=== PATIENT | male | born 1990 | race Caucasian/White ===

== ENCOUNTER 2016-12-03 13:31 | Emergency (ER) | payer MEDICAID, OTHER ==
[~2016-12-03] VITALS: Ht 170.2 cm; Wt 61.4 kg
[~2016-12-03 13:31] MED LIST: NOCURR
[2016-12-03] MEDS ORDERED: CefTRIAXone SODIUM 1 GM/VIAL IM ONE (16:00)
[2016-12-03] MEDS ORDERED: LIDOCAINE HCL/PF 1% 2 ML VIAL IM ONE (16:00)
[2016-12-03] MEDS ORDERED: DEXAMETHASONE SOD PHOS 4 MG/ML VIAL IM ONE (16:00)
[2016-12-03 16:43] VITALS: BP 111/66
== END 2016-12-03 16:49 | disposition home or self-care (01) ==
LOC: EMS 13:40
DX: J02.0 Streptococcal pharyngitis (principal); J06.9 Acute upper respiratory infection, unspecified
CPT/HCPCS: 96372; 99284; J0696; J1100; J3490

== ENCOUNTER 2018-01-11 15:40 | Emergency (ER) | payer OTHER ==
[~2018-01-11] VITALS: Ht 172.7 cm; Wt 78.0 kg
[2018-01-11 16:32] VITALS: BP 138/85
[2018-01-11] MEDS ORDERED: HYDROCODONE/ACETAMINOPHEN 5-325 MG TABLET PO ONE (16:45)
== END 2018-01-11 17:03 | disposition home or self-care (01) ==
LOC: EMS 15:43
DX: B02.9 Zoster without complications (principal); R03.0 Elevated blood-pressure reading, without diagnosis of hypertension
CPT/HCPCS: 99283

== ENCOUNTER 2018-01-18 16:55 | Emergency (ER) | payer OTHER ==
[~2018-01-18] VITALS: Ht 170.2 cm; Wt 75.9 kg
[2018-01-18] MEDS ORDERED: AZIT250T9 PO (17:12)
[2018-01-18 18:00] VITALS: BP 120/77
[2018-01-18] MEDS ORDERED: HYDROCODONE/ACETAMINOPHEN 5-325 MG TABLET PO ONE (18:45)
[2018-01-18] MEDS ORDERED: KETOROLAC TROMETHAMINE 60 MG/2 ML VIAL IM ONE (18:45)
== END 2018-01-18 19:16 | disposition home or self-care (01) ==
LOC: EMS 16:56
DX: S80.02XA Contusion of left knee, initial encounter (principal); R03.0 Elevated blood-pressure reading, without diagnosis of hypertension; V00.131A Fall from skateboard, initial encounter; Y93.51 Activity, roller skating (inline) and skateboarding; Y92.410 Unspecified street and highway as the place of occurrence of the external cause; Y99.8 Other external cause status
CPT/HCPCS: 29505; 73564; 73590; 96372; 99284; J1885

== ENCOUNTER 2021-10-13 16:39 | Emergency (ER) | payer OTHER ==
[~2021-10-13] VITALS: Ht 170.2 cm; Wt 100.0 kg
[~2021-10-13 16:39] MED LIST changes: +AZIT-84 PO; -NOCURR
[2021-10-13] MEDS ORDERED: CYCLOBENZAPRINE HCL 10 MG TABLET PO ONE (17:30)
[2021-10-13] MEDS ORDERED: LIDOCAINE 5% TRANSDERMAL PATCH TD ONE (17:30)
[2021-10-13 18:33] LABS: APPEARANCE,URINE CLEAR (CLEAR); BILIRUBIN,URINE NEGATIVE (NEGATIVE); GLUCOSE, URINE (UA) NEGATIVE (NEGATIVE); KETONES,URINE NEGATIVE (NEGATIVE); LEUKOCYTE ESTERASE ,URINE NEGATIVE (NEGATIVE); NITRATE,URINE NEGATIVE (NEGATIVE); OCCULT BLOOD,URINE NEGATIVE (NEGATIVE); PROTEIN,URINE NEGATIVE (NEGATIVE); UROBILINOGEN,URINE 0.2 mg/dL (<=1.0)
[2021-10-13 18:34] LABS: BACTERIA,URINE Rare /HPF (None Seen); RBC,URINE None Seen /HPF (0-2); WBC,URINE 0-2 /HPF (0-5)
[2021-10-13] MEDS ORDERED: KETOROLAC TROMETHAMINE 30 MG/ML VIAL IM ONE (19:15)
[2021-10-13 19:37] VITALS: BP 120/76
== END 2021-10-13 19:43 | disposition home or self-care (01) ==
LOC: EMS 16:41
DX: N23 Unspecified renal colic (principal); N43.3 Hydrocele, unspecified; N50.3 Cyst of epididymis
CPT/HCPCS: 72100; 76870; 81001; 96372; 99284; J1885

== ENCOUNTER 2023-10-05 14:39 | Emergency (ER) | payer OTHER ==
[~2023-10-05] VITALS: Ht 170.2 cm; Wt 104.5 kg
[~2023-10-05 14:39] MED LIST changes: +AZIT-103 PO; -AZIT-84 PO
[2023-10-05 14:43] VITALS: TEMP 98.2
[2023-10-05] MEDS ORDERED: LIDOCAINE 1% 10 ML VIAL SQ ONE (16:30)
[2023-10-05] MEDS ORDERED: KETOROLAC TROMETHAMINE 30 MG/ML VIAL IVP ONE (16:30)
[2023-10-05] MEDS ORDERED: CefTRIAXone 1 GM/DEXTROSE 50 ML IV ONE (16:30)
[2023-10-05] MEDS ORDERED: ACETAMINOPHEN 500 MG TABLET PO ONE (16:30)
[2023-10-05 16:56] LABS: BASOPHILS % (AUTO) 0.4 % (0.0-2.0); HEMOGLOBIN 14.4 g/dL (13.5-17.5); LYMPHOCYTES # (AUTO) 1.9 K/uL (1.0-4.8); LYMPHOCYTES % (AUTO) 19.4 % (22.0-44.0); MEAN CORPUSCULAR HEMOGLOBIN 29.5 pg (26.0-34.0); MEAN CORPUSCULAR HGB CONC 34.2 G/dL (31.0-37.0); MEAN CORPUSCULAR VOLUME 86 fL (80-100); MONOCYTES # (AUTO) 1.2 K/uL (0.1-1.0); MONOCYTES % (AUTO) 11.7 % (2.0-9.0); NEUTROPHILS # (AUTO) 6.7 K/uL (1.8-7.7); NEUTROPHILS % (AUTO) 67.5 % (40.0-70.0); PLATELET COUNT (AUTO) 240 K/uL (150-450); RED BLOOD CELL COUNT(AUTO) 4.86 MIL/uL (4.50-5.90); RED CELL DISTRIBUTION WIDTH 14.2 % (11.5-14.5); WHITE BLOOD COUNT (AUTO) 9.9 K/uL (4.5-11.0)
[2023-10-05 17:10] LABS: ANION GAP 7 mmol/L (8-16); CARBON DIOXIDE 29 mmol/L (22-29); CHLORIDE 102 mmol/L (98-107); CREATININE 1.02 mg/dL (0.60-1.30); GLOMERULAR FILTR. RATE CALC > 60 mL/min (>60); GLUCOSE,RANDOM 104 mg/dL (70-110); POTASSIUM 3.6 mmol/L (3.5-5.1); SODIUM SERUM 138 mmol/L (136-145); UREA NITROGEN, BLOOD 13 mg/dL (7-18)
[2023-10-05] MEDS ORDERED: ACET-2080 PO (18:18)
[2023-10-05] MEDS ORDERED: CEPH-558 PO (18:18)
[2023-10-05] MEDS ORDERED: DOXY-354 PO (18:18)
[2023-10-05 18:43] VITALS: BP 122/81; PULSE 98; RESP 18
== END 2023-10-05 18:49 | disposition home or self-care (01) ==
LOC: EMS 14:41
DX: L03.114 Cellulitis of left upper limb (principal)
CPT/HCPCS: 99284; 96365; 10060; 96375; 80048; 85025; 36415; J0696; J1885; J3490

== ENCOUNTER 2023-10-07 16:09 | Emergency (ER) | payer OTHER ==
[~2023-10-07] VITALS: Ht 170.2 cm; Wt 103.0 kg
[~2023-10-07 16:09] MED LIST changes: +ACET-2080 PO; +CEPH-558 PO; +DOXY-354 PO
[2023-10-07 16:29] VITALS: BP 133/83; PULSE 76; RESP 16; TEMP 98.8
== END 2023-10-07 18:32 | disposition home or self-care (01) ==
LOC: EMS 16:12
DX: L03.114 Cellulitis of left upper limb (principal); F12.90 Cannabis use, unspecified, uncomplicated
CPT/HCPCS: 99281; Z7502